=== PATIENT | female | born 1980 | race Caucasian/White ===

== ENCOUNTER 2016-08-19 11:56 | Emergency (ER) | payer OTHER ==
--- NOTE | ~2016-08-19 | CR181 ---
[facility] A Service [facility] RADIOLOGY TEXT RESULTS PATIENT: CAREY MILLER LOCATION: [facility] : 78 UNIT #: [id number] AGE: [address]: Mandy Duenas SEX: F ORDER DR: [id number] [place] [address] [facility]. [place], [place] [address] [id number] E MR#: [id number] Acc #: [id number] NAME: CAREY MILLER : 1980 SEX: F STUDY DATE/TIME: 08/19/2016 12:25 UNIT: [facility] ROOM: STUDY DESCRIPTION: CR Lumbar Spine 2 or 3 Views Attending Physician: Mandy Duenas Pa-C Ordering Physician: Mandy Duenas Pa-C Primary Care Physician: No Primary Care Physician MEDICAL IMAGING REPORT This report is preliminary unless electronic signature is present EXAM Lumbar spine, 08/19. HISTORY Low-back pain on the left side that started this morning. No trauma. COMPARISON 05/28/2015 FINDINGS AP and lateral projections of the lumbar segment show good mineralization of both anterior and posterior elements. They are all anatomically normal without indication of fracture, dislocation, or malignant change of a sclerotic or lytic type. There is no congenital defect noted. The sacroiliac joints are normal. IMPRESSION Normal lumbar spine. Dictated by... Jonathan Hernandez Jr., M.D. THIS IS AN ELECTRONICALLY VERIFIED REPORT Jonathan Hernandez Jr., M.D. at 08/19/2016 6:34 PM MONSE/greg TD: 08/19/2016 16:19 JOB #: [id number] MEDICAL IMAGING REPORT [facility] A Service of [facility] RADIOLOGY TEXT RESULTS PATIENT: CAREY MILLER LOCATION: [facility] : 78 UNIT #: [id number] AGE: [address]: Mandy Duenas SEX: F ORDER DR: Page 1 of 1 COPY
[~2016-08-19 11:56] MED LIST: ALBUTEROL17 GM INH; BACTRIM DS TABL1 TAB PO; BENZONATATE PO; CEFTIN PO; CIPRO PO; COMBIVENT INH14.7 GM INH; COMBIVENT MININEB INH; COMBIVENT U/D3 M2 INH; COMBIVENT14.7 GM INH; FLONASE16 GM; HYDROCORTISONE30 G2 EXT; KETOPROFEN PO; LEVAQUIN PO; LEVAQUIN750 MG PO; LEVOFLOXACIN500 MG PO; LOTRIMIN 1% CR30 GM EXT; MEDROL PO; MUCINEX D ER T1 EACH PO; PREDNISONE PO; PREDNISONE10 MG PO; ROBITUSSIN A-C S5 ML PO; SINGULAIR PO; SYMBICORT INH; TESSALON PERLE100 M1 PO; VIBRAMYCIN100 M1 PO; VICODIN 5/500 T1 TAB PO; VICODIN PO; [UNRECOGNIZED DRUG - OTHER]
[2016-08-19 12:36] LABS: URINE SOURCE CLEAN CATCH
[2016-08-19 12:44] LABS: URINE APPEARANCE CLEAR; URINE BILIRUBIN NEG (NEG); URINE BLOOD TRACE (NEG); URINE COLOR YELLOW; URINE GLUCOSE NEG (NEG); URINE KETONE NEG (NEG); URINE LEUKOCYTE ESTERASE TRACE (NEG); URINE NITRATE NEG (NEG); URINE PH 8.5 (5-8); URINE PROTEIN NEG (NEG); URINE SPECIFIC GRAVITY 1.019 (1.003-1.035)
[2016-08-19 12:48] LABS: CULTURE INDICATED? YES; URBCS1 AUWI 0-2 /[HPF] (0-2); URINE BACTERIA AUWI 1+ (NEGATIVE); URINE SQUAMOUS EPITHELIAL CELL OCC /[HPF]
== END 2016-08-19 14:08 | disposition home or self-care (01) ==
LOC: CED 11:56 → CFTX 11:56
PROVIDERS: Physician Assistant Medical
DX: M54.42 Lumbago with sciatica, left side (principal); J44.9 Chronic obstructive pulmonary disease, unspecified; F17.210 Nicotine dependence, cigarettes, uncomplicated; Z88.5 Allergy status to narcotic agent; Z88.8 Allergy status to other drugs, medicaments and biological substances
CPT/HCPCS: 72100; 81003; 84703; 87086; 96372; 99283; J1885; J2360

== ENCOUNTER 2016-08-21 04:20 | Emergency (ER) | payer OTHER ==
--- NOTE | ~2016-08-21 | EKG ---
PATIENT: CAREY MILLER UNIT #: [id number] Ventricular Rate: 79 BPM Atrial Rate: 79 BPM P-R Interval: 150 ms QRS Duration: 92 ms Q-T Interval: 400 ms QTC Calculation(Bezet): 458 ms P [place]: 62 degrees Calculated R [place]: 71 degrees Calculated T [place]: 58 degrees Diagnosis Line: Normal sinus rhythm Diagnosis Line: Normal ECG Diagnosis Line: When compared with ECG of 04-JUL-2015 01:40, Diagnosis Line: No significant change was found Diagnosis Line: Confirmed by MARIZA BOLES MD ([id number]) on Diagnosis Line: 08/21/2016 1:37:26 PM INTERPRETING MD: RAMANA ZUÑIGA
--- NOTE | ~2016-08-21 | CR72 ---
[facility] A Service of [facility] RADIOLOGY TEXT RESULTS PATIENT: CAREY MILLER LOCATION: [facility] : 78 UNIT #: [id number] AGE: [address]: Abhinav Valenzuela MD SEX: F ORDER DR: [id number] [facility] [address] [place], [place] [address] [id number] E MR#: [id number] Acc #: [id number] NAME: CAREY MILLER : 1980 SEX: F STUDY DATE/TIME: 08/21/2016 5:43 UNIT: [facility] ROOM: STUDY DESCRIPTION: CR Chest Single View Portable Attending Physician: Ingrid Ochoa A.P.R.N. Ordering Physician: Ingrid Ochoa A.P.R.N. Primary Care Physician: Primary Care Physician No MEDICAL IMAGING REPORT This report is preliminary unless electronic signature is present EXAM Single view chest INDICATIONS Shortness of air for 1 day. Vomiting and coughing. FINDINGS Single portable AP view of the chest compared to 12/31/2015. Heart and mediastinal contours are normal. There is some minimal linear atelectasis or scarring in the left lung base. No new pulmonary opacity. IMPRESSION No new findings. Dictated by... Pako Zarco M.D. THIS IS AN ELECTRONICALLY VERIFIED REPORT Pako Zarco M.D. at 08/25/2016 7:03 AM SCOTT/chacha TD: 08/21/2016 06:54 JOB #: [id number] MEDICAL IMAGING REPORT Page 1 of 1 COPY
[2016-08-21 06:21] LABS: BASOPHIL# 0.1 X10e3 (0-0.3); BASOPHIL% 0.5 % (0-2.5); EOSINOPHIL# 0.2 X10e3 (0-0.7); EOSINOPHIL% 1.9 % (0.0-7.0); HEMATOCRIT 40.9 % (35.0-45.0); HEMOGLOBIN 12.8 gm/dL (12.0-16.0); LYMPHOCYTE# 1.9 X10e3 (1.0-3.5); LYMPHOCYTE% 16.1 % (17.0-45.0); MEAN CELL VOLUME 84.1 FL (83-96); MEAN CORPUSCULAR HEMOGLOBIN 26.3 PG (28-34); MEAN CORPUSCULAR HGB CONC 31.2 g/dL (30-36); MEAN PLATELET VOLUME 8.8 FL (6.5-11.5); MONOCYTE# 0.7 X10e3 (0-1.0); MONOCYTE% 5.8 % (3.0-12.0); NEUTROPHIL# 8.7 X10e3 (1.5-7.1); NEUTROPHIL% 75.7 % (40-75); PLATELET COUNT 189 X10e3 (140-420); RED BLOOD COUNT 4.86 X10e (3.90-5.30); RED CELL DISTRIBUTION WIDTH 16.3 % (11.0-15.5); WHITE BLOOD COUNT 11.5 X10e3 (4.0-10.5)
[2016-08-21 06:22] LABS: DIFF IND NO
[2016-08-21 06:37] LABS: POC - CKMB 1.1 ng/mL (0.0-7.9); POC - TROPONIN <0.05 ng/mL (<=0.05)
[2016-08-21 06:38] LABS: PARTIAL THROMBOPLASTIN TIME 26.8 SECONDS (23.5-31.3); PROTHROMBIN TIME (PATIENT) 10.2 SECONDS (9.6-11.5)
[2016-08-21 06:57] LABS: AMYLASE 29 U/L (0-46); LIPASE 20 U/L (22-51)
[2016-08-21 07:10] LABS: ALBUMIN SERUM 3.9 g/dL (3.5-5.0); ALKALINE PHOSPHATASE 73 U/L (32-92); ALT (SGPT) 11 U/L (10-40); AST (SGOT) 18 U/L (10-42); BILIRUBIN,TOTAL 0.5 mg/dL (0.2-2.0); BLOOD UREA NITROGEN 7 mg/dL (9-23); BUN/CREATININE RATIO 11.66; CALCIUM SERUM 8.4 mg/dL (8.4-10.2); CARBON DIOXIDE 25 mmol/L (22-31); CHLORIDE 106 mmol/L (100-111); CREATININE SERUM 0.6 mg/dL (0.6-1.4); GLOM FILT RATE Estimated 117.3 mL/min (>60); GLUCOSE FASTING 97 mg/dL (70-110); POTASSIUM 3.6 mmol/L (3.5-5.1); PROTEIN TOTAL SERUM 6.7 g/dL (6.0-8.3); SODIUM 141 mmol/L (135-145)
[2016-08-21 07:11] LABS: BILIRUBIN, DIRECT <0.1 mg/dL (0.0-0.2); BILIRUBIN,INDIRECT 0.4 mg/dL (0.0-0.9)
== END 2016-08-21 08:45 | disposition home or self-care (01) ==
LOC: CED 04:20
PROVIDERS: Nurse Practitioner
DX: J45.909 Unspecified asthma, uncomplicated (principal); J44.9 Chronic obstructive pulmonary disease, unspecified; F17.210 Nicotine dependence, cigarettes, uncomplicated; Z98.51 Tubal ligation status; Z90.49 Acquired absence of other specified parts of digestive tract; Z88.5 Allergy status to narcotic agent; Z88.6 Allergy status to analgesic agent; Z88.8 Allergy status to other drugs, medicaments and biological substances
CPT/HCPCS: 36415; 71010; 80048; 80076; 82150; 82553; 83690; 84484; 84703; 85025; 85610; 85730; 93005; 94640; 96361; 96374; 96375; 99284; J2405; J2930